=== PATIENT | male | born 2005 | race Caucasian/White ===

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

== ENCOUNTER 2024-02-11 03:05 | Outpatient (CLI) | payer MEDICAID, SELFPAY ==
[2024-02-11 12:39] LABS: Hemoglobin A1C 5.2 % (<5.7)
[2024-02-11 12:40] LABS: Calculated LDL 44 mg/dL (<100); Cholesterol 123 mg/dL (<200); HDL Cholesterol 61 mg/dL (40-60); Triglyceride 90 mg/dL (<150)
== END 2024-02-11 03:06 | disposition home or self-care (01) ==
LOC: LOS 03:05
PROVIDERS: PCP Nurse Practitioner Family; Visit Provider Nurse Practitioner Family
DX: Z13.220 Encounter for screening for lipoid disorders (principal); Z13.1 Encounter for screening for diabetes mellitus
CPT/HCPCS: 36415; 80061; 83036